=== PATIENT | male | born 1945 | race Caucasian/White ===

== ENCOUNTER 2017-11-18 11:26 | Observation (INO) | payer OTHER ==
[2017-11-18] MEDS ORDERED: Sodium Chloride 0.9% 1,000 ML IV SCH (13:15)
[2017-11-18 13:34] LABS: VENOUS BLOOD GAS BASE EXCESS -2.6 mmol/L (0.0-2.0); VENOUS BLOOD GAS PCO2 46 mmHg (40-60); VENOUS BLOOD GAS PO2 44 mm/Hg (30-55); VENOUS BLOOD PH 7.32 (7.32-7.43)
[2017-11-18 13:39] LABS: BASO % 0.4 % (0.0-2.0); EOS # 0.6 K/uL (0.0-0.7); EOS % 9.7 % (0.0-4.0); HEMOGLOBIN 13.3 g/dL (12.0-18.0); LYMPH % 31.3 % (20.0-40.0); MEAN CELL VOLUME 85.9 fL (80.0-94.0); MEAN CORPUSCULAR HEMOGLOBIN 28.4 pg (27.0-31.0); MEAN PLATELET VOLUME 9.8 fL (7.2-11.7); MONO # 0.3 K/uL (0.0-0.8); MONO % 5.1 % (0.0-10.0); NEUT # 3.5 K/uL (1.8-7.0); NEUT % 53.5 % (50.0-75.0); RBC 4.7 Mil/uL (4.40-5.90); WHITE BLOOD COUNT 6.5 K/uL (4.8-10.8)
--- NOTE | 2017-11-18 13:41 | C.PDOC ---
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 Patient reports that he has not been taking his anti-diabetic medications for years due GI upset. Patient admits to chest pain, mild SOB but denies palpitations, nausea, vomiting, fever, chills. (Renato Dominguez) History Per: Patient History/Exam Limitations: no limitations Onset/Duration Of Symptoms: Days, Persistent Current Symptoms Are (Timing): Still Present Severity: None Pain Scale Rating Of: 0 <Renato Dominguez - Last Filed: 11/18/17 15:21> <Hector Sanchez M - Last Filed: 11/18/17 18:17> Time Seen by Provider: 11/18/17 12:27 Chief Complaint (Nursing): Weakness/Neurological Deficit Past Medical History - Medical History PMH: Diabetes Surgical History: No Surg Hx Family History: States: Diabetes - Social History Hx Tobacco Use: Yes (12 years of tobacco use. socially ) Hx Alcohol Use: Yes (Socially ) Hx Substance Use: No - Immunization History Hx Tetanus Toxoid Vaccination: No Hx Influenza Vaccination: No Hx Pneumococcal Vaccination: No <AlbertoGailefe Norris - Last Filed: 11/18/17 15:21> Vital Signs: Last Vital Signs Temp 97.7 F 11/18/17 16:38 Pulse 51 L 11/18/17 16:38 Resp 20 11/18/17 16:38 BP 153/69 H 11/18/17 16:38 Pulse Ox 100 11/18/17 16:38 Review Of Systems Constitutional: Positive for: Weakness. Negative for: Fever, Chills Cardiovascular: Positive for: Chest Pain. Negative for: Palpitations, Orthopnea , Edema, Light Headedness Respiratory: Positive for: Shortness of Breath. Negative for: Cough, Hemoptysis , SOB with Excertion, Pleuritic Pain, Sputum Gastrointestinal: Positive for: Nausea. Negative for: Vomiting, Abdominal Pain , Diarrhea, Constipation, Hematochezia, Hematemesis Genitourinary: Positive for: Other (Polyuria ) Neurological: Positive for: Other (Poor historian ). Negative for: Weakness <Renato Dominguez - Last Filed: 11/18/17 15:21> Physical Exam - Physical Exam Appears: No Acute Distress Skin: Normal Color Head: Atraumatic, Normacephalic Eye(s): bilateral: Normal Inspection, EOMI Tongue: Normal Appearing Lips: Normal Appearing Chest: No Tenderness Cardiovascular: Rhythm Regular, No Murmur Respiratory: Normal Breath Sounds, No Decreased Breath Sounds, No Accessory Muscle Use, No Rales, No Rhonchi, No Wheezing Gastrointestinal/Abdominal: Normal Exam, Bowel Sounds, Soft, No Tenderness, No Organomegaly Extremity: Normal ROM, Tenderness, No Pedal Edema, No Calf Tenderness, No Capillary Refill Extremity: Left: No Pedal Edema, Right: No Pedal Edema Neurological/Psych: Normal Speech, Normal Cranial Nerves, Normal Motor, Normal Sensation Disoriented To: Person, Place, Situation Extremity: Right: No Drift, Left: No Drift, Upper: No Drift, Lower: No Drift <Renato Dominguez E - Last Filed: 11/18/17 15:21> ED Course And Treatment - Laboratory Results Result Diagrams: 11/18/17 13:30 11/18/17 13:30 Lab Interpretation: Abnormal Interpretation Of Abnormal: Elevated blood glucose ECG Rhythm: Sinus Rhythm Interpretation Of ECG: Normal sinus rhythm with sinus arrhythmia Rate From EC O2 Sat by Pulse Oximetry: 100 - Radiology CXR: Read By Radiologist CXR Interpretation: Yes: No Acute Disease <Renato Dominguez - Last Filed: 11/18/17 15:21> - Laboratory Results Result Diagrams: 11/18/17 13:30 11/18/17 13:30 <Hector Sanchez - Last Filed: 11/18/17 18:17> Medical Decision Making <Renato Dominguez - Last Filed: 11/18/17 15:21> <Hector Sanchez - Last Filed: 11/18/17 18:17> Medical Decision Making: discussed with pmd and will admit to telemetry observation. Patient received fluids and insulin. Patient not in dka (Hector Sanchez) Disposition <Renato Dominguez - Last Filed: 11/18/17 15:21> Discussed With : Amrik Herbert Counseled Patient/Family Regarding: Studies Performed, Diagnosis - Disposition Disposition Time: 14:24 <Hector Sanchez - Last Filed: 11/18/17 18:17> - Disposition Disposition: HOSPITALIZED Condition: FAIR - Clinical Impression Clinical Impression: Chest pain, Uncontrolled diabetes mellitus
--- NOTE | 2017-11-18 13:45 | RAD ---
HISTORY: Chest pain, SOB COMPARISON: No prior. TECHNIQUE: Chest PA and lateral FINDINGS: LUNGS: No active pulmonary disease. PLEURA: No significant pleural effusion identified. No pneumothorax apparent. CARDIOVASCULAR: Normal. OSSEOUS STRUCTURES: No significant abnormalities. VISUALIZED UPPER ABDOMEN: Normal. OTHER FINDINGS: None. IMPRESSION: No active disease.
[2017-11-18] MEDS ORDERED: (Novolin R) Insulin Human Regular 100 units/ml vial IV ONE ×3 (13:52→14:15)
[2017-11-18] MEDS ORDERED: (Novolin R) Insulin Human Regular 100 units/ml vial ONE (14:04)
[2017-11-18 14:15] LABS: ALB/GLOB RATIO 1.2 (1.0-2.1); ALBUMIN 3.8 g/dL (3.5-5.0); ALT/SGPT 54 U/L (21-72); AST/SGOT 47 U/L (17-59); BLOOD UREA NITROGEN 22 mg/dL (9-20); CALCIUM 8.6 mg/dl (8.6-10.4); GFR AFRICAN-AMERICAN > 60; GFR NON-AFRICAN AMERICAN > 60
[2017-11-18 14:44] VITALS: RESP 20
[2017-11-18] MEDS ORDERED: Sodium Chloride 0.9% 1,000 ML IV ONE (15:30)
[2017-11-18] MEDS: Sodium Chloride 0.9% 1,000 ML IV SCH (16:30)
[2017-11-18] MEDS: (Novolin R) Insulin Human Regular 100 units/ml vial SC SCH ×2 (17:25→21:51)
[2017-11-18 23:11] LABS: URINE BACTERIA RARE (<OCC); URINE BILIRUBIN NEGATIVE (NEGATIVE); URINE BLOOD 1+ (NEGATIVE); URINE CLARITY Clear (Clear); URINE COLOR Straw (YELLOW); URINE GLUCOSE (UA) 3+ mg/dL (Normal); URINE LEUKOCYTE ESTERASE NEG Leu/uL (Negative); URINE PROTEIN NEGATIVE (NEGATIVE); URINE UROBILINOGEN NORMAL mg/dL (0.2-1.0)
--- NOTE | 2017-11-19 | CP.PCM.HP ---
History of Present Illness - History of Present Illness History of Present Illness: Patient is a poor historian Patient is a 71 year old male with past medical history of DM who presents to the ED with complaints of generalized weakness, uncontrolled blood glucose. Patient reports that he has not been taking his anti-diabetic medications for years due GI upset. Patient admits to chest pain, mild SOB but denies palpitations, nausea, vomiting, fever, chills. Past Patient History - Past Social History Smoking Status: Never Smoked - ENDOCRINE/METABOLIC Hx Diabetes Mellitus Type 2: Yes - PSYCHIATRIC Hx Substance Use: No - SURGICAL HISTORY Hx Surgeries: No - ANESTHESIA Hx Anesthesia: No Meds Allergies/Adverse Reactions: Allergies Allergy/AdvReac Type Severity Reaction Status Date / Time No Known Allergies Allergy Verified 11/18/17 11:33 Results - Vital Signs Recent Vital Signs: Last Vital Signs Temp 97.7 F 11/18/17 16:38 Pulse 55 L 11/18/17 22:50 Resp 20 11/18/17 16:38 BP 153/69 H 11/18/17 16:38 Pulse Ox 100 11/18/17 16:38 - Labs Result Diagrams: 11/18/17 13:30 11/18/17 13:30 Labs: Laboratory Results - last 24 hr 11/18/17 11/18/17 11/18/17 11:31 11:32 13:30 WBC RBC Hgb Hct MCV MCH MCHC RDW Plt Count MPV Neut % (Auto) Lymph % (Auto) Wilson % (Auto) Eos % (Auto) Baso % (Auto) Neut # (Auto) Lymph # (Auto) Wilson # (Auto) Eos # (Auto) Baso # (Auto) pO2 44 VBG pH 7.32 VBG pCO2 46 VBG HCO3 22.3 VBG Total CO2 25.1 VBG O2 Sat (Calc) 83.5 H VBG Base Excess -2.6 L VBG Potassium 4.4 Sodium 136.0 Chloride 103.0 Glucose 534 H* Lactate 1.3 Crit Value Called To gordon Dominguez Crit Value Called By Cyndie colvin engine dispatcher Crit Value Read Back Y Blood Gas Notified Time 1335 Potassium Carbon Dioxide Anion Gap BUN Creatinine Est GFR ( Amer) Est GFR (Non-Af Amer) POC Glucose (mg/dL) 495 H* 469 H* Random Glucose Calcium Total Bilirubin AST ALT Alkaline Phosphatase Total Creatine Kinase CK-MB (Mass) Troponin I Total Protein Albumin Globulin Albumin/Globulin Ratio Venous Blood Potassium 4.4 Urine Color Urine Clarity Urine pH Ur Specific [place] Urine Protein Urine Glucose (UA) Urine Ketones Urine Blood Urine Nitrate Urine Bilirubin Urine Urobilinogen Ur Leukocyte Esterase Urine WBC (Auto) Urine RBC (Auto) Urine Bacteria Serum Ketones 11/18/17 11/18/17 11/18/17 13:30 13:30 14:05 WBC 6.5 RBC 4.70 Hgb 13.3 Hct 40.4 MCV 85.9 MCH 28.4 MCHC 33.0 RDW 13.0 Plt Count 210 MPV 9.8 Neut % (Auto) 53.5 Lymph % (Auto) 31.3 Wilson % (Auto) 5.1 Eos % (Auto) 9.7 H Baso % (Auto) 0.4 Neut # (Auto) 3.5 Lymph # (Auto) 2.0 Wilson # (Auto) 0.3 Eos # (Auto) 0.6 Baso # (Auto) 0.0 pO2 VBG pH VBG pCO2 VBG HCO3 VBG Total CO2 VBG O2 Sat (Calc) VBG Base Excess VBG Potassium Sodium 134 Chloride 96 L Glucose Lactate Crit Value Called To Crit Value Called By Crit Value Read Back Blood Gas Notified Time Potassium 4.8 Carbon Dioxide 25 Anion Gap 18 BUN 22 H Creatinine 1.1 Est GFR ( Amer) > 60 Est GFR (Non-Af Amer) > 60 POC Glucose (mg/dL) 370 H Random Glucose 597 H* Calcium 8.6 Total Bilirubin 0.9 AST 47 ALT 54 Alkaline Phosphatase 144 H Total Creatine Kinase CK-MB (Mass) Troponin I < 0.0120 Total Protein 6.9 Albumin 3.8 Globulin 3.1 Albumin/Globulin Ratio 1.2 Venous Blood Potassium Urine Color Urine Clarity Urine pH Ur Specific [place] Urine Protein Urine Glucose (UA) Urine Ketones Urine Blood Urine Nitrate Urine Bilirubin Urine Urobilinogen Ur Leukocyte Esterase Urine WBC (Auto) Urine RBC (Auto) Urine Bacteria Serum Ketones Negative 11/18/17 11/18/17 11/18/17 14:43 16:52 19:51 WBC RBC Hgb Hct MCV MCH MCHC RDW Plt Count MPV Neut % (Auto) Lymph % (Auto) Wilson % (Auto) Eos % (Auto) Baso % (Auto) Neut # (Auto) Lymph # (Auto) Wilson # (Auto) Eos # (Auto) Baso # (Auto) pO2 VBG pH VBG pCO2 VBG HCO3 VBG Total CO2 VBG O2 Sat (Calc) VBG Base Excess VBG Potassium Sodium Chloride Glucose Lactate Crit Value Called To Crit Value Called By Crit Value Read Back Blood Gas Notified Time Potassium Carbon Dioxide Anion Gap BUN Creatinine Est GFR ( Amer) Est GFR (Non-Af Amer) POC Glucose (mg/dL) 280 H 258 H Random Glucose Calcium Total Bilirubin AST ALT Alkaline Phosphatase Total Creatine Kinase 93 CK-MB (Mass) 2.50 Troponin I < 0.0120 Total Protein Albumin Globulin Albumin/Globulin Ratio Venous Blood Potassium Urine Color Urine Clarity Urine pH Ur Specific [place] Urine Protein Urine Glucose (UA) Urine Ketones Urine Blood Urine Nitrate Urine Bilirubin Urine Urobilinogen Ur Leukocyte Esterase Urine WBC (Auto) Urine RBC (Auto) Urine Bacteria Serum Ketones 11/18/17 11/18/17 21:13 22:57 WBC RBC Hgb Hct MCV MCH MCHC RDW Plt Count MPV Neut % (Auto) Lymph % (Auto) Wilson % (Auto) Eos % (Auto) Baso % (Auto) Neut # (Auto) Lymph # (Auto) Wilson # (Auto) Eos # (Auto) Baso # (Auto) pO2 VBG pH VBG pCO2 VBG HCO3 VBG Total CO2 VBG O2 Sat (Calc) VBG Base Excess VBG Potassium Sodium Chloride Glucose Lactate Crit Value Called To Crit Value Called By Crit Value Read Back Blood Gas Notified Time Potassium Carbon Dioxide Anion Gap BUN Creatinine Est GFR ( Amer) Est GFR (Non-Af Amer) POC Glucose (mg/dL) 321 H Random Glucose Calcium Total Bilirubin AST ALT Alkaline Phosphatase Total Creatine Kinase CK-MB (Mass) Troponin I Total Protein Albumin Globulin Albumin/Globulin Ratio Venous Blood Potassium Urine Color Straw Urine Clarity Clear Urine pH 5.0 Ur Specific [place] 1.022 Urine Protein Negative Urine Glucose (UA) 3+ H Urine Ketones Negative Urine Blood 1+ H Urine Nitrate Negative Urine Bilirubin Negative Urine Urobilinogen Normal Ur Leukocyte Esterase Neg Urine WBC (Auto) 1 Urine RBC (Auto) 4 H Urine Bacteria Rare Serum Ketones
[2017-11-19] MEDS: Sodium Chloride 0.9% 1,000 ML IV SCH ×2 (00:46→01:29)
[2017-11-19 02:53] LABS: CK-MB 2.16 ng/mL (0.0-3.38)
[2017-11-19 07:41] LABS: BLOOD UREA NITROGEN 17 mg/dL (9-20); CALCIUM 8.1 mg/dl (8.6-10.4); GFR AFRICAN-AMERICAN > 60; GFR NON-AFRICAN AMERICAN > 60
[2017-11-19] MEDS: (Novolin R) Insulin Human Regular 100 units/ml vial SC SCH ×4 (08:14→21:35)
--- NOTE | 2017-11-19 09:43 | RAD ---
HISTORY: chest pain COMPARISON: Chest radiograph dated 11/18/2017. TECHNIQUE: Chest PA and lateral FINDINGS: LUNGS: No active pulmonary disease. PLEURA: No significant pleural effusion identified. No pneumothorax apparent. CARDIOVASCULAR: Normal. OSSEOUS STRUCTURES: Unchanged. VISUALIZED UPPER ABDOMEN: Normal. OTHER FINDINGS: None. IMPRESSION: No active disease.
--- NOTE | 2017-11-19 12:10 | CARD ---
APPROVED REPORT EKG Measurement Heart [id number] <Conclusion> Normal sinus rhythm with sinus arrhythmia Normal ECG
[2017-11-19] MEDS: Enoxaparin 40 mg Syringe SC SCH (12:45)
--- NOTE | 2017-11-19 12:52 | CARD ---
APPROVED REPORT EXAM: Two-dimensional and M-mode echocardiogram with Doppler and color Doppler. Other Information Quality : GoodRhythm : INDICATION Dyspnea Chest Pain EF RISK FACTORS Diabetes 2D DIMENSIONS IVSd0.9 (0.7-1.1cm)LVDd4.2 (3.9-5.9cm) PWd0.9 (0.7-1.1cm)LVDs2.8 (2.5-4.0cm) FS (%) 33.7 %LVEF (%)62.9 (>50%) M-Mode DIMENSIONS Left Atrium (MM)2.88 (2.5-4.0cm)Aortic Root3.21 (2.2-3.7cm) Aortic Cusp Exc.2.16 (1.5-2.0cm) Mitral Valve MV E Plotowsx36.3cm/sMV A Flsdndsc14.9cm/sE/A ratio1.0 TDI E/Lateral E'0.0E/Medial E'0.0 Tricuspid Valve TR Peak [id number]/sTR Peak Gr.[id number] LEFT VENTRICLE The left ventricle is normal size. There is normal left ventricular wall thickness. The left ventricular function is normal. The left ventricular ejection fraction is within the normal range. There is normal LV segmental wall motion. The left ventricular diastolic function is normal. No left ventricle thrombus noted on this study. There is no ventricular septal defect visualized. There is no left ventricular aneurysm. There is no mass noted in the left ventricle. RIGHT VENTRICLE The right ventricle is normal size. There is normal right ventricular wall thickness. The right ventricular systolic function is normal. ATRIA The left atrium size is normal. The right atrium size is normal. The interatrial septum is intact with no evidence for an atrial septal defect. AORTIC VALVE The aortic valve is normal in structure. No aortic regurgitation is present. There is no aortic valvular stenosis. There is no aortic valvular vegetation. MITRAL VALVE Mitral annular calcification is borderline. There is no evidence of mitral valve prolapse. There is no mitral valve stenosis. There is no mitral valve regurgitation noted. TRICUSPID VALVE The tricuspid valve is normal in structure. There is no tricuspid valve regurgitation noted. PULMONIC VALVE The pulmonary valve is normal in structure. There is no pulmonic valvular regurgitation. GREAT VESSELS The aortic root is normal in size. The ascending aorta is normal in size. The pulmonary artery is normal. The IVC is normal in size and collapses >50% with inspiration. PERICARDIAL EFFUSION There is no pericardial effusion. <Conclusion> NORMAL STUDY. LVEF IS 60%.
--- NOTE | 2017-11-19 15:51 | CARD ---
APPROVED REPORT EKG Measurement Heart [id number] <Conclusion> Sinus bradycardia Otherwise normal ECG
[2017-11-19 17:17] LABS: CK-MB 1.66 ng/mL (0.0-3.38)
--- NOTE | 2017-11-19 23:25 | CP.PCM.PN ---
Subjective - Date & Time of Evaluation Date of Evaluation: 11/19/17 Time of Evaluation: 17:40 - Subjective Subjective: pt seen and examined at bedside. Objective - Vital Signs/Intake and Output Vital Signs (last 24 hours): Temp Pulse Resp BP Pulse Ox 97.8 F 57 L 20 154/72 H 100 11/19/17 15:22 11/19/17 15:22 11/19/17 15:22 11/19/17 15:22 11/19/17 15:22 - Medications Medications: Current Medications Aspirin (Aspirin Chewable) 81 mg PO DAILY [facility] Last Admin: 11/19/17 12:44 Dose: 81 mg Enoxaparin Sodium (Lovenox) 40 mg SC DAILY [facility] Last Admin: 11/19/17 12:45 Dose: 40 mg Insulin Human Regular (Novolin R) 0 unit SC [facility] PRN Reason: Protocol Last Admin: 11/19/17 21:35 Dose: Not Given Losartan Potassium (Cozaar) 25 mg PO DAILY [facility] Last Admin: 11/19/17 12:43 Dose: 25 mg Metformin HCl (Glucophage) 1,000 mg PO BIDCC [facility] Last Admin: 11/19/17 17:20 Dose: 1,000 mg Pantoprazole Sodium (Protonix Ec Tab) 40 mg PO DAILY [facility] Pneumococcal Polyvalent Vaccine (Pneumovax 23 Vaccine) 0.5 ml IM .ONCE ONE Stop: 11/21/17 10:01 Rosuvastatin Calcium (Crestor) 10 mg PO HS [facility] Last Admin: 11/19/17 21:53 Dose: 10 mg Sitagliptin Phosphate (Januvia) 100 mg PO DAILY [facility] - Labs Labs: 11/18/17 13:30 11/19/17 07:12
--- NOTE | 2017-11-20 01:07 | CON ---
DATE: CARDIOLOGY CONSULTATION REASON FOR CONSULTATION: Hypertension and uncontrolled diabetes mellitus. HISTORY OF PRESENT ILLNESS: The patient is 71 years old male, who has history of longstanding diabetes mellitus for the past 15 years, history of hypertension presented generalized weakness, found to have uncontrolled diabetes mellitus. The patient has not taken his diabetic medications for few days because of his stomach upset. The patient did report chest pain to the emergency room team, especially with shortness of breath. The patient is unaware of any history of heart attack in the past. SOCIAL HISTORY: The patient is a nonsmoker. He is . 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 MEDICATIONS: The patient is currently on aspirin 81 mg once a day, Cozaar 25 mg once a day, Crestor 10 mg once a day, metformin 1 gm twice a day, Januvia 100 mg daily, Lovenox 40 mg daily, and Protonix 40 mg once a day. REVIEW OF SYSTEMS: No nausea or vomiting. No fever or chills. No syncope. PHYSICAL EXAMINATION: GENERAL: The patient is an elderly male, who does not appear to be in any acute distress. VITAL SIGNS: Blood pressure 153/69, heart rate 51, temperature 97.7, respirations 20. HEENT: Normocephalic. NECK: No JVD. CHEST: Clear. HEART: Heart sounds are regular. EXTREMITIES: No edema. LABORATORY DATA: SMA-7: Sodium 136, potassium 4.5, chloride 106, CO2 of 24, glucose 163, BUN 17, creatinine 0.8. Two sets of troponin are negative. CBC: WBC 6.5, hemoglobin 16.3, hematocrit 40.4, and platelet count 210,000. Serum ketones were negative. EKG revealed normal sinus rhythm. Echocardiographic study was a normal study with an ejection fraction of 60%. ASSESSMENT: 1. Chest pain, myocardial infarction ruled out. 2. Uncontrolled diabetes mellitus. 3. Uncontrolled hypertension. RECOMMENDATIONS: Continue current aspirin 81 mg once a day, Cozaar 25 mg once a day, Crestor 10 mg once a day, Glucophage 1 gm twice a day, Lovenox 40 mg daily. I will schedule the patient for treadmill stress test tomorrow. Willam Mckeon MD
[2017-11-20] MEDS: (Novolin R) Insulin Human Regular 100 units/ml vial SC SCH ×3 (08:13→17:54)
[2017-11-20 08:18] VITALS: O2SAT 98
[2017-11-20] MEDS: Enoxaparin 40 mg Syringe SC SCH (09:28)
[2017-11-20] MEDS ORDERED: Pantoprazole 40 mg EC Tab PO SCH (10:00)
--- NOTE | 2017-11-20 15:16 | CP.PCM.PN ---
Subjective - Date & Time of Evaluation Date of Evaluation: 11/20/17 Time of Evaluation: 14:10 - Subjective Subjective: patient seen today , denies any chest pain, sob, dizziness, palpitations BS still high above 250 s/p stress test Objective - Vital Signs/Intake and Output Vital Signs (last 24 hours): Temp Pulse Resp BP Pulse Ox 98.0 F 54 L 20 114/63 98 11/20/17 08:17 11/20/17 08:17 11/20/17 08:17 11/20/17 08:17 11/20/17 08:17 Intake and Output: 11/20/17 11/20/17 06:59 18:59 Intake Total 590 Balance 590 - Medications Medications: Current Medications Aspirin (Aspirin Chewable) 81 mg PO DAILY [facility] Last Admin: 11/20/17 09:28 Dose: 81 mg Enoxaparin Sodium (Lovenox) 40 mg SC DAILY [facility] Last Admin: 11/20/17 09:28 Dose: 40 mg Insulin Human Regular (Novolin R) 0 unit SC [facility] PRN Reason: Protocol Last Admin: 11/20/17 14:13 Dose: 2 unit Losartan Potassium (Cozaar) 25 mg PO DAILY [facility] Last Admin: 11/20/17 09:28 Dose: 25 mg [facility] Last Admin: 11/20/17 08:13 Dose: 1,000 mg Pantoprazole Sodium (Protonix Ec Tab) 40 mg PO DAILY [facility] Last Admin: 11/20/17 09:28 Dose: 40 mg Pneumococcal Polyvalent Vaccine (Pneumovax 23 Vaccine) 0.5 ml IM .ONCE ONE Stop: 11/21/17 10:01 Rosuvastatin Calcium (Crestor) 10 mg PO [facility] Last Admin: 11/19/17 21:53 Dose: 10 mg Sitagliptin Phosphate (Januvia) 100 mg PO DAILY [facility] Last Admin: 11/20/17 09:28 Dose: 100 mg - Labs Labs: 11/18/17 13:30 11/19/17 07:12 - Constitutional Appears: Well, No Acute Distress - Respiratory Exam Respiratory Exam: Decreased Breath Sounds, Clear to Ausculation Bilateral, NORMAL BREATHING PATTERN - Cardiovascular Exam Cardiovascular Exam: Bradycardia, REGULAR RHYTHM, +S1, +S2 - Neurological Exam Neurological Exam: Alert, Awake, Oriented x3 Assessment and Plan - Assessment and Plan (Free Text) Assessment: 71 year old male with past medical history of DM non complaints with medication admitted with chest pain and hyperglycemia troponin - 3 , negative ECHO- normal EF s/p - stress test - negative and cleared for discharge home from cardiology standpoint D/W Dr. Herbert, stable for discharge home today and f/u with Dr. Herbert office in 1 week Discharge plan discussed with patient via supervisor carton and can supply , who understands and agrees with plan
--- NOTE | 2017-11-20 15:25 | CARD ---
APPROVED REPORT Protocol: DIANA Test Type: TREADMILL TEST Attending Physician: Dr. Odin LOWERY Technologist: RHONDA Test Indications: CAD Target HR: 149 bpm Resting ECG: normal Resting Heart Rate: 87 bpm Resting Blood Pressure: 132/80mmHg submaximum (85%): 127 bpm TEST SUMMARY [id number]..1.0./.0. PRETESTWARM-UP41:[id number]/80.0. EXERCISESTAGE 103:[id number]/80.0. EXERCISESTAGE 203:[id number]/80.0. EXERCISESTAGE 301:[id number]/.0. [id number]/80.0. POST EXERCISE Reason for Termination: Fatigue Target HR: NoMax HR: 120 bpm80% of Maximum Predicted HR: 149 bpm Exercise duration: 3 Stage07:31 min:secExercise capacity: 10.1METs Max Blood Pressure: 148/80mmHg Blood Pressure response to exercise: normal resting BP - appropriate response Heart Rate response to exercise: attenuated Chest Pain: NononeAngina index: 0 Arrhythmia: Nonone ST Change: Yes0.5 mm Depression upslopingDeviation: 0 mm INTERPRETATION Stress EKG Conclusion: Nondiagnostic stress test, achieved 80% of PMHR Fair exercise tolerance
[2017-11-20 15:54] VITALS: BP 141/65; PULSE 61; TEMP 97.2
--- NOTE | 2017-11-20 18:05 | PN ---
DATE: SUBJECTIVE: The patient denied any chest pain or shortness of breath. PHYSICAL EXAM: VITAL SIGNS: Blood pressure 114/63, heart rate 64, temperature 98, respirations 20. HEENT: Normocephalic. NECK: No JVD. CHEST: Clear. HEART: Heart sounds S1, S2 regular. ABDOMEN: Soft. EXTREMITIES: No edema. LABORATORIES: Today's blood sugars are 284 and 240. Official echocardiographic study report consistent with a normal study. Ejection fraction 60%. Treadmill stress test was performed and the patient exercised for 7-1/2 minutes and achieved 80% of the predicted maximal heart rate and stress test was discontinued because of fatigue. ASSESSMENT: 1. Uncontrolled diabetes mellitus. 2. Hypertension. RECOMMENDATIONS: Continue current aspirin, Cozaar, Crestor, Glucophage, and Januvia. The case was discussed with Dr. Amrik Herbert. The level of exercise that the patient performed is satisfactory and in the absence of chest pain or ischemic EKG changes, cardiac catheterization is not justified. Willam Mckeon MD
--- NOTE | 2017-11-20 23:08 | CP.PCM.DIS ---
Provider - Provider Date of Admission: 11/18/17 14:22 Attending physician: Amrik Herbert MD Time Spent in preparation of Discharge (in minutes): 52 Hospital Course - Lab Results Lab Results: Most Recent Lab Values WBC 6.5 K/uL (4.8-10.8) 11/18/17 13:30 RBC 4.70 Mil/uL (4.40-5.90) 11/18/17 13:30 Hgb 13.3 g/dL (12.0-18.0) 11/18/17 13:30 Hct 40.4 % (35.0-51.0) 11/18/17 13:30 MCV 85.9 fL (80.0-94.0) 11/18/17 13:30 MCH 28.4 pg (27.0-31.0) 11/18/17 13:30 MCHC 33.0 g/dL (33.0-37.0) 11/18/17 13:30 RDW 13.0 % (11.5-14.5) 11/18/17 13:30 Plt Count 210 K/uL (130-400) 11/18/17 13:30 MPV 9.8 fL (7.2-11.7) 11/18/17 13:30 Neut % (Auto) 53.5 % (50.0-75.0) 11/18/17 13:30 Lymph % (Auto) 31.3 % (20.0-40.0) 11/18/17 13:30 [place] % (Auto) 5.1 % (0.0-10.0) 11/18/17 13:30 Eos % (Auto) 9.7 % (0.0-4.0) H 11/18/17 13:30 Baso % (Auto) 0.4 % (0.0-2.0) 11/18/17:30 Neut # (Auto) 3.5 K/uL (1.8-7.0) 11/18/17 13:30 Lymph # (Auto) 2.0 K/uL (1.0-4.3) 11/18/17 13:30 [place] # (Auto) 0.3 K/uL (0.0-0.8) 11/18/17 13:30 Eos # (Auto) 0.6 K/uL (0.0-0.7) 11/18/17 13:30 Baso # (Auto) 0.0 K/uL (0.0-0.2) 11/18/17 13:30 pO2 44 mm/Hg (30-55) 11/18/17 13:30 VBG pH 7.32 (7.32-7.43) 11/18/17 13:30 VBG pCO2 46 mmHg (40-60) 11/18/17 13:30 VBG HCO3 22.3 mmol/L 11/18/17 13:30 VBG Total CO2 25.1 mmol/L (22-28) 11/18/17 13:30 VBG O2 Sat (Calc) 83.5 % (40-65) H 11/18/17 13:30 VBG Base Excess -2.6 mmol/L (0.0-2.0) L 11/18/17 13:30 VBG Potassium 4.4 mmol/L (3.6-5.2) 11/18/17 13:30 Sodium 136.0 mmol/l (132-148) 11/18/17 13:30 Chloride 103.0 mmol/L (98-107) 11/18/17 13:30 Glucose 534 mg/dl (75-110) H* 11/18/17 13:30 Lactate 1.3 mmol/L (0.7-2.1) 11/18/17 13:30 Crit Value Called To gordon Dominguez 11/18/17 13:30 Crit Value Called By Cyndie colvin spray operator 11/18/17 13:30 Crit Value Read Back Y 11/18/17 13:30 Blood Gas Notified Time 1335 11/18/17 13:30 Sodium 136 mmol/L (132-148) 11/19/17 07:12 Potassium 4.5 mmol/L (3.6-5.2) 11/19/17 07:12 Chloride 106 mmol/L (98-107) 11/19/17 07:12 Carbon Dioxide 24 mmol/L (22-30) 11/19/17 07:12 Anion Gap 10 (10-20) 11/19/17 07:12 BUN 17 mg/dL (9-20) 11/19/17 07:12 Creatinine 0.8 mg/dL (0.8-1.5) 11/19/17 07:12 Est GFR ( Amer) > 60 11/19/17 07:12 Est GFR (Non-Af Amer) > 60 11/19/17 07:12 POC Glucose (mg/dL) 171 mg/dL (65-110) H 11/20/17 16:33 Random Glucose 253 mg/dL (75-110) H 11/19/17 07:12 Hemoglobin A1c 12.4 % (4.2-6.5) H 11/19/17 07:12 Calcium 8.1 mg/dl (8.6-10.4) L 11/19/17 07:12 Total Bilirubin 0.9 mg/dL (0.2-1.3) 11/18/17 13:30 AST 47 U/L (17-59) 11/18/17 13:30 ALT 54 U/L (21-72) 11/18/17 13:30 Alkaline Phosphatase 144 U/L (38-126) H 11/18/17 13:30 Total Creatine Kinase 58 U/L (55-170) 11/19/17 16:43 CK-MB (Mass) 1.66 ng/mL (0.0-3.38) 11/19/17 16:43 Troponin I < 0.0120 ng/mL (0.00-0.120) 11/19/17 16:43 Total Protein 6.9 g/dL (6.3-8.3) 11/18/17 13:30 Albumin 3.8 g/dL (3.5-5.0) 11/18/17 13:30 Globulin 3.1 gm/dL (2.2-3.9) 11/18/17 13:30 Albumin/Globulin Ratio 1.2 (1.0-2.1) 11/18/17 13:30 Triglycerides 137 mg/dL (0-149) 11/19/17 16:43 Cholesterol 109 mg/dL (0-199) 11/19/17 16:43 LDL Cholesterol Direct 51 mg/dL (0-129) 11/19/17 16:43 HDL Cholesterol 41 mg/dL (30-70) 11/19/17 16:43 TSH 3rd Generation 2.57 mIU/L (0.46-4.68) 03/14/18 16:43 Venous Blood Potassium 4.4 mmol/L (3.6-5.2) 11/18/17 13:30 Urine Color Straw (YELLOW) 11/18/17 22:57 Urine Clarity Clear (Clear) 11/18/17 22:57 Urine pH 5.0 (5.0-8.0) 11/18/17 22:57 Ur Specific [place] 1.022 (1.003-1.030) 11/18/17 22:57 Urine Protein Negative mg/dL (NEGATIVE) 11/18/17 22:57 Urine Glucose (UA) 3+ mg/dL (Normal) H 11/18/17 22:57 Urine Ketones Negative mg/dL (NEGATIVE) 11/18/17 22:57 Urine Blood 1+ (NEGATIVE) H 11/18/17 22:57 Urine Nitrate Negative (NEGATIVE) 11/18/17 22:57 Urine Bilirubin Negative (NEGATIVE) 11/18/17 22:57 Urine Urobilinogen Normal mg/dL (0.2-1.0) 11/18/17 22:57 Ur Leukocyte Esterase Neg [place]/uL (Negative) 11/18/17 22:57 Urine WBC (Auto) 1 /hpf (0-5) 11/18/17 22:57 Urine RBC (Auto) 4 /hpf (0-3) H 11/18/17 22:57 Urine Bacteria Rare (<OCC) 11/18/17 22:57 Serum Ketones Negative (NEGATIVE) 11/18/17 13:30 - Hospital Course Hospital Course: 71 year old male with past medical history of DM non complaints with medication admitted with chest pain and hyperglycemia troponin - 3 , negative ECHO- normal EF s/p - stress test - negative and cleared for discharge home from cardiology standpoint Pt is stable for discharge home today and f/u with me in office in 1 week Discharge plan discussed with patient via assistant professor of spanish , who understands and agrees with plan Discharge Plan - Discharge Medications Prescriptions: Blood Glucose Control High,Low [Accu-Chek Compact Plus Control] 1 each MC TID 30 Days each Blood Sugar Diagnostic, Drum [Accu-Chek Compact] 1 each MC TID 30 Days strip Lancing Device/Lancets [Accu-Chek Fastclix Lancet Kit] 1 each MC TID 30 Days kit Losartan [Cozaar] 25 mg PO DAILY #30 tab Rosuvastatin Calcium [Crestor] 10 mg PO HS #30 tab metFORMIN [glucOPHAGE] 1,000 mg PO BIDCC #60 tab SITagliptin [Januvia] 100 mg PO DAILY #30 tab - Follow Up Plan Condition: FAIR Disposition: HOME/ ROUTINE Instructions: Sitagliptin, Diabetes Exchange Diet, Chest Pain (DC), Diabetes Type 2 (DC), Losartan, Metformin, Rosuvastatin, Diabetic Meal Planning , Diabetes and Diet Additional Instructions: Please follow up with Dr. Herbert office in 1 - 2 weeks - call and make appointment( [address] [place] [address] ) Continue medication as per med. rec. Please check your blood sugar three times a day Referrals: Amrik Herbert MD [Staff Provider] -
[2017-11-21] MEDS ORDERED: Influenza Vaccine 60 mcg/0.5 mL SYR (4YR UP) IM ONE (10:00)
[2017-11-21] MEDS ORDERED: Pneumococcal 23-Valent Vaccine IM ONE (10:00)
== END 2017-11-20 18:23 | disposition home or self-care (01) ==
LOC: C.ER 11:26 → C.6T 14:22
PROVIDERS: ADMIT Internal Medicine; ATTEND Internal Medicine
DX: E11.65 Type 2 diabetes mellitus with hyperglycemia (principal); I10 Essential (primary) hypertension; Z87.891 Personal history of nicotine dependence; Z79.4 Long term (current) use of insulin
CPT/HCPCS: 36415; 71046; 80048; 80053; 80061; 81001; 82009; 82803; 82948; 83036; 84443; 84484; 85025; 93005; 93017; 93306; 96360; 99285; G0378; J1650; J7040